=== PATIENT | male | born 1945 | race Hispanic/Latino ===

== ENCOUNTER → 2020-01-07 | Outpatient (CLI) | payer OTHER | END | disposition home or self-care (01) | LOC: RAH 08:33 | PROVIDERS: ATTEND Family Medicine | DX: I70.0 Atherosclerosis of aorta (principal); K57.90 Diverticulosis of intestine, part unspecified, without perforation or abscess without bleeding; R63.4 Abnormal weight loss | CPT/HCPCS: 74176 ==

== ENCOUNTER 2020-11-20 09:43 | Inpatient (IN) | payer OTHER ==
[~2020-11-20] VITALS: Ht 167.6 cm; Wt 65.5 kg
[2020-11-20] MEDS ORDERED: ALBUTEROL INHALER 90MCG/INH IH ONE (10:16)
[2020-11-20 10:25] LABS: BASOPHILS % (AUTO) 0.2 % (0.0-5.0); EOSINOPHILS % (AUTO) 0.6 % (0.0-8.0); HEMATOCRIT 41.5 % (42-54); LYMPHOCYTES % (AUTO) 9.5 % (21.0-51.0); MEAN CORPUSCULAR HEMOGLOBIN 30.2 pg (27.0-33.0); MEAN CORPUSCULAR VOLUME 91.6 fL (79-99); MONOCYTES % (AUTO) 4.6 % (3.0-13.0); NEUTROPHILS % (AUTO) 83.6 % (40.0-77.0); PLATELET COUNT (AUTO) 398 K/uL (130-400); RED BLOOD CELL COUNT(AUTO) 4.53 MIL/uL (4.50-6.20); RED CELL DISTRIBUTION WIDTH 13.3 % (11.0-15.5); WHITE BLOOD COUNT (AUTO) 12.2 K/uL (4.8-10.8)
[2020-11-20 10:33] LABS: INR 1.3 (0.85-1.15); PROTHROMBIN TIME 13.8 SEC (9.6-11.6)
[2020-11-20 10:35] LABS: PARTIAL THROMBOPLASTIN TIME 35.2 SEC (26.3-35.5)
[2020-11-20 10:42] LABS: ALANINE AMINOTRANSFERASE 56 U/L (12-78); ALBUMIN 2.1 g/dL (3.5-5.0); ASPARTATE AMINOTRANSFERASE 32 U/L (10-37); BILIRUBIN,TOTAL 1.6 mg/dL (0.2-1.0); CARBON DIOXIDE 28 mmol/L (21-32); CHLORIDE 100 mmol/L (101-111); CREATINE KINASE, TOTAL 22 U/L (21-232); GLOMERULAR FILTR. RATE CALC 77 mL/min (>60); GLUCOSE,RANDOM 103 mg/dL (70-105); LACTATE DEHYDROGENASE 302 U/L (81-234); MYOGLOBIN 36 ng/mL (10-92); POTASSIUM 4.1 mmol/L (3.5-5.1); SODIUM SERUM 135 mmol/L (136-145); TOTAL PROTEIN, SERUM 6.7 g/dL (6.0-8.3); TROPONIN I < 0.04 ng/mL (0.00-0.06); UREA NITROGEN, BLOOD 13 mg/dL (7-18)
[2020-11-20] MEDS ORDERED: CEFTRIAXONE 1G VIAL ONE (11:11)
[2020-11-20] MEDS ORDERED: AZITHROMYCIN 250 MG TABLET PO ONE (11:12)
[2020-11-20 11:27] LABS: ERYTHROCYTE SEDIMENTATION RATE 105 MM/HR (0-20)
[2020-11-20] MEDS: CEFEPIME HCL 1 GM VIAL IVP SCH ×2 (11:30→18:08)
[2020-11-20] MEDS ORDERED: ALBUTEROL INHALER 90MCG/INH IH PRN (11:30)
[2020-11-20] MEDS ORDERED: LABETALOL 20MG SYG IV PRN (11:30)
[2020-11-20] MEDS ORDERED: LACTULOSE 20 GM/30 ML UDCUP PO PRN (11:30)
[2020-11-20] MEDS ORDERED: SOLU-MEDROL 125MG VIAL IVP ONE (11:30)
[2020-11-20] MEDS ORDERED: ONDANSETRON 4MG INJ IVP PRN (11:30)
[2020-11-20] MEDS ORDERED: ACETAMINOPHEN 650 MG SUPPOSITORY RC PRN (11:30)
[2020-11-20] MEDS ORDERED: ACETAMINOPHEN 325 MG TAB PO PRN (11:30)
[2020-11-20] MEDS ORDERED: CLONIDINE HCL 0.1 MG TABLET PO PRN (11:30)
[2020-11-20] MEDS: INSULIN HUMULIN R 100 UNIT/ML 3ML SQ SCH ×3 (11:30→21:00)
[2020-11-20 12:16] LABS: ABG BASE EXCESS 1.6 mmol/L (-2.0-3.0); ABG HCO3 25.2 mmol/L (21.0-28.0); ABG PCO2 37 mmHg (35-48)
[2020-11-20] MEDS ORDERED: CEFEPIME HCL 2 GM VIAL ONE (12:36)
[2020-11-20] MEDS ORDERED: SOLU-MEDROL 125MG VIAL ONE (12:36)
[2020-11-20] MEDS ORDERED: LACTATED RINGERS 1000ML 1,000 ML IV ONE (12:36)
[2020-11-20] MEDS ORDERED: 0.9%NACL 100ML 100 ML IV ONE (12:37)
[2020-11-20] MEDS: METRONIDAZOLE 500MG/100ML BAG 100 ML IVPB SCH ×2 (14:57→21:51)
[2020-11-20] MEDS ORDERED: PHARMACY COMMUNICATION MISC SCH (15:00)
[2020-11-20 16:17] VITALS: BP 141/82
[2020-11-20] MEDS ORDERED: ALBU6.7H9 IH (16:37)
[2020-11-20] MEDS ORDERED: AMLO-257 PO (16:37)
[2020-11-20] MEDS ORDERED: OXYB10TA4 PO (16:37)
[2020-11-20] MEDS ORDERED: LISI20TA24 PO (16:37)
[2020-11-20] MEDS ORDERED: ATOR40TA69 PO (16:37)
[2020-11-20] MEDS: LACTATED RINGERS 1000ML 1,000 ML IV SCH (18:00)
[2020-11-20] MEDS: PANTOPRAZOLE 40 MG TAB DR PO SCH (18:08)
[2020-11-20 19:05] LABS: CREATINE KINASE, TOTAL 21 U/L (21-232); MYOGLOBIN 35 ng/mL (10-92); TROPONIN I < 0.04 ng/mL (0.00-0.06)
[2020-11-20] MEDS ORDERED: REMDESIVIR (EUA) 520 200 MG in 0.9% NACL 250ML 250 ML IV ONE (20:00)
[2020-11-20] MEDS ORDERED: COMPOUND IV REFRIGERATED 1 EACH IVSOLN MISC PRN (20:00)
[2020-11-20 20:17] VITALS: BP 136/72
[2020-11-20] MEDS: SOLU-MEDROL 125MG VIAL IVP SCH (21:50)
[2020-11-20] MEDS: ATORVASTATIN 40 MG TABLET PO SCH (21:51)
[2020-11-20 22:08] VITALS: BP 124/72
[2020-11-21] VITALS (9 sets, daily range): BP systolic 102–140; BP diastolic 36–74
[2020-11-21] MEDS ORDERED: 0.9% NACL 500ML IV.SOLN 500 ML IV ONE (00:11)
[2020-11-21 00:55] LABS: CREATINE KINASE, TOTAL 25 U/L (21-232); MYOGLOBIN 32 ng/mL (10-92); TROPONIN I < 0.04 ng/mL (0.00-0.06)
[2020-11-21] MEDS: LACTATED RINGERS 1000ML 1,000 ML IV SCH ×2 (01:16→10:54)
[2020-11-21] MEDS: CEFEPIME HCL 1 GM VIAL IVP SCH ×3 (04:17→19:55)
[2020-11-21] MEDS: SOLU-MEDROL 125MG VIAL IVP SCH ×3 (04:18→19:55)
[2020-11-21 04:34] LABS: BASOPHILS % (AUTO) 0.1 % (0.0-5.0); HEMATOCRIT 36.9 % (42-54); LYMPHOCYTES % (AUTO) 11.1 % (21.0-51.0); MEAN CORPUSCULAR HEMOGLOBIN 30.6 pg (27.0-33.0); MEAN CORPUSCULAR HGB CONC 33.9 g/dL (32.0-36.0); MEAN CORPUSCULAR VOLUME 90.2 fL (79-99); NEUTROPHILS % (AUTO) 85.9 % (40.0-77.0); PLATELET COUNT (AUTO) 376 K/uL (130-400); RED BLOOD CELL COUNT(AUTO) 4.09 MIL/uL (4.50-6.20); RED CELL DISTRIBUTION WIDTH 13.2 % (11.0-15.5); WHITE BLOOD COUNT (AUTO) 9.6 K/uL (4.8-10.8)
[2020-11-21 04:44] LABS: CREATININE 0.8 mg/dL (0.5-1.5); PHOSPHORUS 4.2 mg/dL (2.5-4.9); POTASSIUM 3.9 mmol/L (3.5-5.1)
[2020-11-21 04:48] LABS: % IRON SATURATION 22.6 % (30-44)
[2020-11-21] MEDS ORDERED: REMDESIVIR LABS MISC SCH (06:00)
[2020-11-21] MEDS: METRONIDAZOLE 500MG/100ML BAG 100 ML IVPB SCH ×3 (06:48→22:37)
[2020-11-21] MEDS: INSULIN HUMULIN R 100 UNIT/ML 3ML SQ SCH ×4 (07:30→21:41)
[2020-11-21] MEDS: POLYETHYLENE GLYCOL 3350 17 GM POWD.PACK PO SCH (08:14)
[2020-11-21] MEDS: OXYBUTYNIN CHLORIDE 5 MG TABLET PO SCH (08:15)
[2020-11-21] MEDS: ENOXAPARIN SODIUM 40 MG/0.4 ML SYRINGE SQ SCH (08:15)
[2020-11-21] MEDS: AMLODIPINE 5 MG TAB PO SCH (08:15)
[2020-11-21] MEDS: PANTOPRAZOLE 40 MG TAB DR PO SCH (16:28)
[2020-11-21 16:55] LABS: CREATININE 1.2 mg/dL (0.5-1.5); POTASSIUM 3.7 mmol/L (3.5-5.1)
[2020-11-21 17:00] LABS: ALBUMIN 1.8 g/dL (3.5-5.0); BILIRUBIN,TOTAL 0.5 mg/dL (0.2-1.0); TOTAL PROTEIN, SERUM 6.9 g/dL (6.0-8.3)
[2020-11-21] MEDS: REMDESIVIR (EUA) 520 100 MG in 0.9% NACL 250ML 250 ML IV SCH (19:55)
[2020-11-21] MEDS: ATORVASTATIN 40 MG TABLET PO SCH (19:56)
[2020-11-22 03:00] VITALS: BP 110/66
[2020-11-22 04:21] LABS: HEMATOCRIT 36.8 % (42-54); MEAN CORPUSCULAR HEMOGLOBIN 29.3 pg (27.0-33.0); MEAN CORPUSCULAR HGB CONC 31.8 g/dL (32.0-36.0); RED CELL DISTRIBUTION WIDTH 13.4 % (11.0-15.5); WHITE BLOOD COUNT (AUTO) 19.3 K/uL (4.8-10.8)
[2020-11-22] MEDS: SOLU-MEDROL 125MG VIAL IVP SCH ×3 (04:25→20:14)
[2020-11-22] MEDS: CEFEPIME HCL 1 GM VIAL IVP SCH ×3 (04:25→20:14)
[2020-11-22] MEDS: LACTATED RINGERS 1000ML 1,000 ML IV SCH ×2 (04:25→18:02)
[2020-11-22 04:29] LABS: CREATININE 0.9 mg/dL (0.5-1.5); POTASSIUM 4.6 mmol/L (3.5-5.1)
[2020-11-22] MEDS: INSULIN HUMULIN R 100 UNIT/ML 3ML SQ SCH ×4 (06:16→21:00)
[2020-11-22] MEDS: METRONIDAZOLE 500MG/100ML BAG 100 ML IVPB SCH ×3 (06:19→22:27)
[2020-11-22 06:42] LABS: ALBUMIN 1.6 g/dL (3.5-5.0); BILIRUBIN,DIRECT 0.1 mg/dL (0.0-0.3); BILIRUBIN,TOTAL 0.3 mg/dL (0.2-1.0); CREATININE 0.9 mg/dL (0.5-1.5); TOTAL PROTEIN, SERUM 5.9 g/dL (6.0-8.3)
[2020-11-22 07:28] VITALS: BP 122/70
[2020-11-22] MEDS: OXYBUTYNIN CHLORIDE 5 MG TABLET PO SCH (08:51)
[2020-11-22] MEDS: AMLODIPINE 5 MG TAB PO SCH (08:52)
[2020-11-22] MEDS: ENOXAPARIN SODIUM 40 MG/0.4 ML SYRINGE SQ SCH (08:53)
[2020-11-22] MEDS: POLYETHYLENE GLYCOL 3350 17 GM POWD.PACK PO SCH (08:53)
[2020-11-22 13:14] VITALS: BP 126/67
[2020-11-22 16:46] VITALS: BP 136/78
[2020-11-22] MEDS: DRONABINOL 2.5 MG CAP PO SCH (17:03)
[2020-11-22] MEDS: PANTOPRAZOLE 40 MG TAB DR PO SCH (17:03)
[2020-11-22 18:51] LABS: BILIRUBIN,URINE Negative (NEGATIVE); COLOR,URINE Yellow (YELLOW); GLUCOSE, URINE (UA) 500 mg/dL (NEGATIVE); KETONES,URINE Negative (NEGATIVE); LEUKOCYTE ESTERASE ,URINE Negative (NEGATIVE); NITRATE,URINE Negative (NEGATIVE); OCCULT BLOOD,URINE Negative (NEGATIVE); PROTEIN,URINE Negative (NEGATIVE)
[2020-11-22 18:57] LABS: APPEARANCE,URINE CLOUDY (CLEAR)
[2020-11-22 19:00] VITALS: BP 137/72
[2020-11-22 19:32] LABS: BACTERIA,URINE Rare /HPF (None Seen); RBC,URINE 0-1 /HPF (0-1); SQUAMOUS EPITHELIAL CELL,UR Rare /HPF (0-2); URIC ACID CRYSTALS,URINE Moderate /LPF (None Seen); WBC,URINE 0-1 /HPF (0-1)
[2020-11-22 19:33] LABS: HYALINE CASTS, URINE 0-1 /LPF (0-1 /LPF)
[2020-11-22] MEDS: ATORVASTATIN 40 MG TABLET PO SCH (20:15)
[2020-11-22] MEDS: REMDESIVIR (EUA) 520 100 MG in 0.9% NACL 250ML 250 ML IV SCH (20:17)
[2020-11-23] VITALS: BP 141/80
[2020-11-23] MEDS: SOLU-MEDROL 125MG VIAL IVP SCH ×3 (03:22→20:02)
[2020-11-23] MEDS: CEFEPIME HCL 1 GM VIAL IVP SCH ×3 (03:22→20:02)
[2020-11-23 03:31] LABS: HEMATOCRIT 36.6 % (42-54); MEAN CORPUSCULAR HEMOGLOBIN 30.4 pg (27.0-33.0); MEAN CORPUSCULAR HGB CONC 33.3 g/dL (32.0-36.0); MEAN CORPUSCULAR VOLUME 91.3 fL (79-99); RED BLOOD CELL COUNT(AUTO) 4.01 MIL/uL (4.50-6.20); RED CELL DISTRIBUTION WIDTH 13.4 % (11.0-15.5); WHITE BLOOD COUNT (AUTO) 18.9 K/uL (4.8-10.8)
[2020-11-23 03:46] LABS: CREATININE 0.9 mg/dL (0.5-1.5); POTASSIUM 4.1 mmol/L (3.5-5.1)
[2020-11-23 04:00] VITALS: BP 136/60
[2020-11-23] MEDS: METRONIDAZOLE 500MG/100ML BAG 100 ML IVPB SCH ×3 (06:15→22:27)
[2020-11-23] MEDS: LACTATED RINGERS 1000ML 1,000 ML IV SCH ×2 (06:15→19:30)
[2020-11-23] MEDS: INSULIN HUMULIN R 100 UNIT/ML 3ML SQ SCH ×4 (06:18→20:01)
[2020-11-23 06:59] LABS: ALBUMIN 1.7 g/dL (3.5-5.0); BILIRUBIN,DIRECT 0.1 mg/dL (0.0-0.3); BILIRUBIN,TOTAL 0.4 mg/dL (0.2-1.0)
[2020-11-23 07:24] LABS: ABG BASE EXCESS 1.8 mmol/L (-2.0-3.0); ABG HCO3 25.6 mmol/L (21.0-28.0); ABG OXYGEN SATURATION 87.6 % (95.0-99.0); ABG PCO2 37 mmHg (35-48)
[2020-11-23 08:00] VITALS: BP 135/66
[2020-11-23] MEDS: AMLODIPINE 5 MG TAB PO SCH (08:34)
[2020-11-23] MEDS: OXYBUTYNIN CHLORIDE 5 MG TABLET PO SCH (08:34)
[2020-11-23] MEDS: DRONABINOL 2.5 MG CAP PO SCH ×2 (08:34→16:53)
[2020-11-23] MEDS: POLYETHYLENE GLYCOL 3350 17 GM POWD.PACK PO SCH (08:34)
[2020-11-23] MEDS: ENOXAPARIN SODIUM 40 MG/0.4 ML SYRINGE SQ SCH (08:35)
[2020-11-23] MEDS ORDERED: 0.9%NACL 50ML 50 ML IV ONE (11:07)
[2020-11-23 12:27] VITALS: BP 131/59
[2020-11-23 16:00] VITALS: BP 150/80
[2020-11-23] MEDS: PANTOPRAZOLE 40 MG TAB DR PO SCH (16:53)
[2020-11-23 19:55] VITALS: BP 147/85
[2020-11-23] MEDS: ATORVASTATIN 40 MG TABLET PO SCH (20:02)
[2020-11-23] MEDS: REMDESIVIR (EUA) 520 100 MG in 0.9% NACL 250ML 250 ML IV SCH (20:06)
[2020-11-24] VITALS (7 sets, daily range): BP systolic 126–154; BP diastolic 52–97
[2020-11-24 03:59] LABS: HEMATOCRIT 38.8 % (42-54); MEAN CORPUSCULAR HEMOGLOBIN 29.5 pg (27.0-33.0); MEAN CORPUSCULAR HGB CONC 32.7 g/dL (32.0-36.0); RED BLOOD CELL COUNT(AUTO) 4.31 MIL/uL (4.50-6.20); RED CELL DISTRIBUTION WIDTH 13.3 % (11.0-15.5)
[2020-11-24 04:07] LABS: CREATININE 0.7 mg/dL (0.5-1.5); POTASSIUM 3.7 mmol/L (3.5-5.1)
[2020-11-24] MEDS: CEFEPIME HCL 1 GM VIAL IVP SCH ×3 (04:21→20:38)
[2020-11-24] MEDS: SOLU-MEDROL 125MG VIAL IVP SCH ×3 (04:21→20:38)
[2020-11-24] MEDS: METRONIDAZOLE 500MG/100ML BAG 100 ML IVPB SCH ×3 (05:43→22:06)
[2020-11-24] MEDS: INSULIN HUMULIN R 100 UNIT/ML 3ML SQ SCH ×4 (05:43→20:58)
[2020-11-24 06:07] LABS: ALBUMIN 1.8 g/dL (3.5-5.0); BILIRUBIN,DIRECT 0.1 mg/dL (0.0-0.3); BILIRUBIN,TOTAL 0.4 mg/dL (0.2-1.0); CREATININE 0.7 mg/dL (0.5-1.5); TOTAL PROTEIN, SERUM 5.5 g/dL (6.0-8.3)
[2020-11-24 06:57] LABS: ABG BASE EXCESS 2.6 mmol/L (-2.0-3.0); ABG HCO3 26.4 mmol/L (21.0-28.0); ABG OXYGEN SATURATION 96.1 % (95.0-99.0); ABG PCO2 38 mmHg (35-48)
[2020-11-24] MEDS: DRONABINOL 2.5 MG CAP PO SCH ×2 (08:07→17:00)
[2020-11-24] MEDS: POLYETHYLENE GLYCOL 3350 17 GM POWD.PACK PO SCH (08:07)
[2020-11-24] MEDS: ENOXAPARIN SODIUM 40 MG/0.4 ML SYRINGE SQ SCH (08:07)
[2020-11-24] MEDS: OXYBUTYNIN CHLORIDE 5 MG TABLET PO SCH (08:07)
[2020-11-24] MEDS: AMLODIPINE 5 MG TAB PO SCH (08:07)
[2020-11-24] MEDS ORDERED: 0.9%NACL 50ML 50 ML IV ONE (11:56)
[2020-11-24] MEDS: PANTOPRAZOLE 40 MG TAB DR PO SCH (17:00)
[2020-11-24 18:21] LABS: ALBUMIN 2.1 g/dL (3.5-5.0); BILIRUBIN,TOTAL 0.5 mg/dL (0.2-1.0); CREATININE 0.9 mg/dL (0.5-1.5); POTASSIUM 3.9 mmol/L (3.5-5.1); TOTAL PROTEIN, SERUM 6.9 g/dL (6.0-8.3)
[2020-11-24] MEDS: ATORVASTATIN 40 MG TABLET PO SCH (20:38)
[2020-11-24] MEDS: REMDESIVIR (EUA) 520 100 MG in 0.9% NACL 250ML 250 ML IV SCH (20:40)
[2020-11-25] MEDS: SOLU-MEDROL 125MG VIAL IVP SCH ×3 (02:37→20:00)
[2020-11-25] MEDS: CEFEPIME HCL 1 GM VIAL IVP SCH ×3 (02:37→20:00)
[2020-11-25 03:03] VITALS: BP 127/53
[2020-11-25 04:15] LABS: HEMATOCRIT 37.7 % (42-54); MEAN CORPUSCULAR HEMOGLOBIN 30.6 pg (27.0-33.0); MEAN CORPUSCULAR HGB CONC 34.2 g/dL (32.0-36.0); MEAN CORPUSCULAR VOLUME 89.5 fL (79-99); RED BLOOD CELL COUNT(AUTO) 4.21 MIL/uL (4.50-6.20); RED CELL DISTRIBUTION WIDTH 13.2 % (11.0-15.5); WHITE BLOOD COUNT (AUTO) 17.2 K/uL (4.8-10.8)
[2020-11-25 04:30] LABS: CREATININE 0.7 mg/dL (0.5-1.5); CRP QUANTITATIVE 51.9 mg/L (0.00-9.0); POTASSIUM 4.1 mmol/L (3.5-5.1)
[2020-11-25] MEDS: METRONIDAZOLE 500MG/100ML BAG 100 ML IVPB SCH ×3 (05:49→21:51)
[2020-11-25] MEDS: INSULIN HUMULIN R 100 UNIT/ML 3ML SQ SCH ×4 (05:50→16:16)
[2020-11-25 08:00] VITALS: BP 121/68
[2020-11-25] MEDS: DRONABINOL 2.5 MG CAP PO SCH ×2 (08:15→15:54)
[2020-11-25] MEDS: AMLODIPINE 5 MG TAB PO SCH (08:15)
[2020-11-25] MEDS: OXYBUTYNIN CHLORIDE 5 MG TABLET PO SCH (08:15)
[2020-11-25] MEDS: ENOXAPARIN SODIUM 40 MG/0.4 ML SYRINGE SQ SCH (08:16)
[2020-11-25] MEDS: POLYETHYLENE GLYCOL 3350 17 GM POWD.PACK PO SCH (08:16)
[2020-11-25] MEDS ORDERED: 0.9%NACL 50ML 50 ML IV ONE (11:55)
[2020-11-25 12:00] VITALS: BP 144/97
[2020-11-25] MEDS: PANTOPRAZOLE 40 MG TAB DR PO SCH (15:51)
[2020-11-25 16:00] VITALS: BP 140/79
[2020-11-25 20:00] VITALS: BP 154/82
[2020-11-25] MEDS: ATORVASTATIN 40 MG TABLET PO SCH (20:00)
[2020-11-25] MEDS ORDERED: INSULIN HUMULIN R 100 UNIT/ML 3ML SQ SCH (22:50)
[2020-11-26 04:00] VITALS: BP 160/81
[2020-11-26 04:17] LABS: ABG BASE EXCESS 3.8 mmol/L (-2.0-3.0); ABG OXYGEN SATURATION 92.4 % (95.0-99.0); ABG PCO2 36 mmHg (35-48)
[2020-11-26] MEDS: CEFEPIME HCL 1 GM VIAL IVP SCH ×2 (04:19→11:22)
[2020-11-26] MEDS: SOLU-MEDROL 125MG VIAL IVP SCH ×3 (04:19→20:00)
[2020-11-26 05:16] LABS: HEMATOCRIT 44.6 % (42-54); MEAN CORPUSCULAR HEMOGLOBIN 29.6 pg (27.0-33.0); MEAN CORPUSCULAR HGB CONC 32.7 g/dL (32.0-36.0); MEAN CORPUSCULAR VOLUME 90.5 fL (79-99); RED BLOOD CELL COUNT(AUTO) 4.93 MIL/uL (4.50-6.20); RED CELL DISTRIBUTION WIDTH 13.7 % (11.0-15.5)
[2020-11-26 05:29] LABS: CREATININE 0.7 mg/dL (0.5-1.5); MAGNESIUM 2.2 mg/dL (1.80-2.40); POTASSIUM 3.8 mmol/L (3.5-5.1)
[2020-11-26] MEDS: METRONIDAZOLE 500MG/100ML BAG 100 ML IVPB SCH ×2 (05:55→14:00)
[2020-11-26] MEDS: INSULIN HUMULIN R 100 UNIT/ML 3ML SQ SCH ×4 (06:02→20:03)
[2020-11-26 07:40] VITALS: BP 149/91
[2020-11-26] MEDS: OXYBUTYNIN CHLORIDE 5 MG TABLET PO SCH (08:37)
[2020-11-26] MEDS: DRONABINOL 2.5 MG CAP PO SCH ×2 (08:37→16:58)
[2020-11-26] MEDS: AMLODIPINE 5 MG TAB PO SCH (08:37)
[2020-11-26] MEDS: ENOXAPARIN SODIUM 40 MG/0.4 ML SYRINGE SQ SCH (08:38)
[2020-11-26] MEDS: POLYETHYLENE GLYCOL 3350 17 GM POWD.PACK PO SCH (08:38)
[2020-11-26] MEDS ORDERED: 0.9%NACL 50ML 50 ML IV ONE (11:09)
[2020-11-26 11:30] VITALS: BP 122/70
[2020-11-26 16:17] VITALS: BP 148/80
[2020-11-26] MEDS: PANTOPRAZOLE 40 MG TAB DR PO SCH (16:58)
[2020-11-26 19:53] VITALS: BP 145/81
[2020-11-26] MEDS: ATORVASTATIN 40 MG TABLET PO SCH (20:00)
[2020-11-26 23:04] VITALS: BP 135/78
[2020-11-27 03:33] VITALS: BP 147/73
[2020-11-27] MEDS: SOLU-MEDROL 125MG VIAL IVP SCH ×3 (04:01→18:43)
[2020-11-27] MEDS: INSULIN HUMULIN R 100 UNIT/ML 3ML SQ SCH ×4 (06:24→20:44)
[2020-11-27 08:00] VITALS: BP 147/77
[2020-11-27] MEDS: OXYBUTYNIN CHLORIDE 5 MG TABLET PO SCH (09:28)
[2020-11-27] MEDS: DRONABINOL 2.5 MG CAP PO SCH ×2 (09:28→17:18)
[2020-11-27] MEDS: AMLODIPINE 5 MG TAB PO SCH (09:28)
[2020-11-27] MEDS: POLYETHYLENE GLYCOL 3350 17 GM POWD.PACK PO SCH (09:31)
[2020-11-27] MEDS: ENOXAPARIN SODIUM 40 MG/0.4 ML SYRINGE SQ SCH (09:31)
[2020-11-27 10:22] LABS: APPEARANCE,URINE Cloudy (CLEAR); BILIRUBIN,URINE Negative (NEGATIVE); COLOR,URINE Yellow (YELLOW); GLUCOSE, URINE (UA) Negative (NEGATIVE); KETONES,URINE Negative (NEGATIVE); LEUKOCYTE ESTERASE ,URINE Trace (NEGATIVE); NITRATE,URINE Negative (NEGATIVE); OCCULT BLOOD,URINE Negative (NEGATIVE); PROTEIN,URINE Negative (NEGATIVE)
[2020-11-27 10:33] LABS: RBC,URINE 0-1 /HPF (0-1)
[2020-11-27 10:34] LABS: BACTERIA,URINE Few /HPF (None Seen); SQUAMOUS EPITHELIAL CELL,UR Few /HPF (0-2)
[2020-11-27 12:00] VITALS: BP 117/72
[2020-11-27 16:00] VITALS: BP 128/75
[2020-11-27] MEDS: PANTOPRAZOLE 40 MG TAB DR PO SCH (17:18)
[2020-11-27 20:00] VITALS: BP 144/74
[2020-11-27] MEDS: ATORVASTATIN 40 MG TABLET PO SCH (20:07)
[2020-11-28] VITALS: BP 126/75
[2020-11-28] MEDS: SOLU-MEDROL 125MG VIAL IVP SCH ×3 (02:47→21:41)
[2020-11-28 04:00] VITALS: BP 135/74
[2020-11-28 04:00] LABS: HEMATOCRIT 43.6 % (42-54); MEAN CORPUSCULAR HEMOGLOBIN 29.4 pg (27.0-33.0); MEAN CORPUSCULAR HGB CONC 31.9 g/dL (32.0-36.0); MEAN CORPUSCULAR VOLUME 92.4 fL (79-99); RED BLOOD CELL COUNT(AUTO) 4.72 MIL/uL (4.50-6.20); RED CELL DISTRIBUTION WIDTH 13.6 % (11.0-15.5); WHITE BLOOD COUNT (AUTO) 15.2 K/uL (4.8-10.8)
[2020-11-28 04:10] LABS: CREATININE 0.8 mg/dL (0.5-1.5); MAGNESIUM 2.1 mg/dL (1.80-2.40); PHOSPHORUS 3.6 mg/dL (2.5-4.9); POTASSIUM 4.1 mmol/L (3.5-5.1)
[2020-11-28 05:19] LABS: ABG BASE EXCESS 5.7 mmol/L (-2.0-3.0); ABG HCO3 29.9 mmol/L (21.0-28.0); ABG OXYGEN SATURATION 88.9 % (95.0-99.0); ABG PCO2 42 mmHg (35-48)
[2020-11-28] MEDS: INSULIN HUMULIN R 100 UNIT/ML 3ML SQ SCH ×4 (07:23→21:42)
[2020-11-28] MEDS: AMLODIPINE 5 MG TAB PO SCH (07:55)
[2020-11-28] MEDS: POLYETHYLENE GLYCOL 3350 17 GM POWD.PACK PO SCH (07:55)
[2020-11-28] MEDS: ENOXAPARIN SODIUM 40 MG/0.4 ML SYRINGE SQ SCH (07:55)
[2020-11-28] MEDS: OXYBUTYNIN CHLORIDE 5 MG TABLET PO SCH (07:55)
[2020-11-28] MEDS: DRONABINOL 2.5 MG CAP PO SCH ×2 (07:55→17:26)
[2020-11-28 07:56] VITALS: BP 158/78
[2020-11-28 11:55] VITALS: BP 147/81
[2020-11-28 15:00] VITALS: BP 141/69
[2020-11-28] MEDS: PANTOPRAZOLE 40 MG TAB DR PO SCH (17:26)
[2020-11-28 20:00] VITALS: BP 125/71
[2020-11-28] MEDS: ATORVASTATIN 40 MG TABLET PO SCH (21:41)
[2020-11-29] VITALS (7 sets, daily range): BP systolic 96–144; BP diastolic 55–86
[2020-11-29 03:48] LABS: HEMATOCRIT 40.1 % (42-54); MEAN CORPUSCULAR HEMOGLOBIN 29.4 pg (27.0-33.0); MEAN CORPUSCULAR HGB CONC 31.9 g/dL (32.0-36.0); MEAN CORPUSCULAR VOLUME 92.2 fL (79-99); RED BLOOD CELL COUNT(AUTO) 4.35 MIL/uL (4.50-6.20); RED CELL DISTRIBUTION WIDTH 13.6 % (11.0-15.5); WHITE BLOOD COUNT (AUTO) 17.1 K/uL (4.8-10.8)
[2020-11-29] MEDS: SOLU-MEDROL 125MG VIAL IVP SCH ×3 (03:53→20:51)
[2020-11-29 04:05] LABS: CREATININE 0.7 mg/dL (0.5-1.5); MAGNESIUM 2.1 mg/dL (1.80-2.40); POTASSIUM 4.3 mmol/L (3.5-5.1)
[2020-11-29 04:07] LABS: ABG HCO3 34.8 mmol/L (21.0-28.0); ABG OXYGEN SATURATION 96.6 % (95.0-99.0); ABG PCO2 51 mmHg (35-48)
[2020-11-29] MEDS: INSULIN HUMULIN R 100 UNIT/ML 3ML SQ SCH ×4 (05:30→20:53)
[2020-11-29] MEDS: AMLODIPINE 5 MG TAB PO SCH (09:00)
[2020-11-29] MEDS: ENOXAPARIN SODIUM 40 MG/0.4 ML SYRINGE SQ SCH (09:07)
[2020-11-29] MEDS: OXYBUTYNIN CHLORIDE 5 MG TABLET PO SCH (09:07)
[2020-11-29] MEDS: POLYETHYLENE GLYCOL 3350 17 GM POWD.PACK PO SCH (09:07)
[2020-11-29] MEDS: DRONABINOL 2.5 MG CAP PO SCH (09:09)
[2020-11-29] MEDS: PANTOPRAZOLE 40 MG TAB DR PO SCH (17:31)
[2020-11-29] MEDS: ATORVASTATIN 40 MG TABLET PO SCH (20:51)
[2020-11-30 03:25] VITALS: BP 112/80
[2020-11-30] MEDS: SOLU-MEDROL 125MG VIAL IVP SCH ×3 (03:30→21:33)
[2020-11-30 03:44] LABS: HEMATOCRIT 39.2 % (42-54); MEAN CORPUSCULAR HEMOGLOBIN 29.8 pg (27.0-33.0); MEAN CORPUSCULAR HGB CONC 32.4 g/dL (32.0-36.0); RED BLOOD CELL COUNT(AUTO) 4.26 MIL/uL (4.50-6.20); RED CELL DISTRIBUTION WIDTH 13.7 % (11.0-15.5); WHITE BLOOD COUNT (AUTO) 14.4 K/uL (4.8-10.8)
[2020-11-30 03:58] LABS: CREATININE 0.7 mg/dL (0.5-1.5); MAGNESIUM 2.1 mg/dL (1.80-2.40)
[2020-11-30] MEDS: INSULIN HUMULIN R 100 UNIT/ML 3ML SQ SCH ×4 (06:57→21:35)
[2020-11-30 07:00] VITALS: BP 128/65
[2020-11-30] MEDS: OXYBUTYNIN CHLORIDE 5 MG TABLET PO SCH (08:24)
[2020-11-30] MEDS: ENOXAPARIN SODIUM 40 MG/0.4 ML SYRINGE SQ SCH (08:25)
[2020-11-30] MEDS: POLYETHYLENE GLYCOL 3350 17 GM POWD.PACK PO SCH (08:25)
[2020-11-30] MEDS: AMLODIPINE 5 MG TAB PO SCH (08:25)
[2020-11-30 11:00] VITALS: BP 125/69
[2020-11-30 16:00] VITALS: BP 118/64
[2020-11-30] MEDS: PANTOPRAZOLE 40 MG TAB DR PO SCH (17:25)
[2020-11-30 19:20] VITALS: BP 146/74
[2020-11-30] MEDS: ATORVASTATIN 40 MG TABLET PO SCH (21:33)
[2020-11-30 23:24] VITALS: BP 135/72
[2020-12-01 04:19] VITALS: BP 121/60
[2020-12-01 05:18] LABS: HEMATOCRIT 40.2 % (42-54); MEAN CORPUSCULAR HEMOGLOBIN 29.9 pg (27.0-33.0); MEAN CORPUSCULAR HGB CONC 33.3 g/dL (32.0-36.0); MEAN CORPUSCULAR VOLUME 89.7 fL (79-99); NUCLEATED RED BLOOD CELLS 0.1 % (0.0-0.19); RED BLOOD CELL COUNT(AUTO) 4.48 MIL/uL (4.50-6.20); RED CELL DISTRIBUTION WIDTH 13.5 % (11.0-15.5); WHITE BLOOD COUNT (AUTO) 15.5 K/uL (4.8-10.8)
[2020-12-01 05:46] LABS: CREATININE 0.7 mg/dL (0.5-1.5); POTASSIUM 3.9 mmol/L (3.5-5.1)
[2020-12-01 06:42] VITALS: BP 151/83
[2020-12-01] MEDS: INSULIN HUMULIN R 100 UNIT/ML 3ML SQ SCH ×4 (07:30→21:14)
[2020-12-01] MEDS: POLYETHYLENE GLYCOL 3350 17 GM POWD.PACK PO SCH (08:54)
[2020-12-01] MEDS: AMLODIPINE 5 MG TAB PO SCH (08:54)
[2020-12-01] MEDS: ENOXAPARIN SODIUM 40 MG/0.4 ML SYRINGE SQ SCH (08:55)
[2020-12-01] MEDS: OXYBUTYNIN CHLORIDE 5 MG TABLET PO SCH (08:56)
[2020-12-01 11:56] VITALS: BP 146/76
[2020-12-01 16:00] VITALS: BP 144/78
[2020-12-01] MEDS: PANTOPRAZOLE 40 MG TAB DR PO SCH (17:41)
[2020-12-01] MEDS: SOLU-MEDROL 125MG VIAL IVP SCH ×3 (17:44→21:17)
[2020-12-01 19:00] VITALS: BP 137/75
[2020-12-01] MEDS: ATORVASTATIN 40 MG TABLET PO SCH (21:15)
[2020-12-02] VITALS: BP 120/67
[2020-12-02 04:00] VITALS: BP 143/73
[2020-12-02] MEDS: SOLU-MEDROL 125MG VIAL IVP SCH ×3 (04:35→22:17)
[2020-12-02 05:36] LABS: HEMATOCRIT 40.1 % (42-54); MEAN CORPUSCULAR HEMOGLOBIN 30.3 pg (27.0-33.0); MEAN CORPUSCULAR HGB CONC 34.2 g/dL (32.0-36.0); MEAN CORPUSCULAR VOLUME 88.7 fL (79-99); RED BLOOD CELL COUNT(AUTO) 4.52 MIL/uL (4.50-6.20); RED CELL DISTRIBUTION WIDTH 13.7 % (11.0-15.5); WHITE BLOOD COUNT (AUTO) 15.6 K/uL (4.8-10.8)
[2020-12-02 05:59] LABS: CREATININE 0.8 mg/dL (0.5-1.5); MAGNESIUM 1.9 mg/dL (1.80-2.40); POTASSIUM 3.9 mmol/L (3.5-5.1)
[2020-12-02] MEDS: INSULIN HUMULIN R 100 UNIT/ML 3ML SQ SCH ×4 (06:07→22:21)
[2020-12-02 08:58] VITALS: BP 131/66
[2020-12-02] MEDS: POLYETHYLENE GLYCOL 3350 17 GM POWD.PACK PO SCH (09:03)
[2020-12-02] MEDS: AMLODIPINE 5 MG TAB PO SCH (09:03)
[2020-12-02] MEDS: OXYBUTYNIN CHLORIDE 5 MG TABLET PO SCH (09:04)
[2020-12-02] MEDS: ENOXAPARIN SODIUM 40 MG/0.4 ML SYRINGE SQ SCH (09:04)
[2020-12-02 12:00] VITALS: BP 124/64
[2020-12-02] MEDS: PANTOPRAZOLE 40 MG TAB DR PO SCH (16:31)
[2020-12-02 16:32] VITALS: BP 127/70
[2020-12-02] MEDS: BENZOCAINE/MENTH/CETYLPYRD CL 1 EACH LOZENGE MM PRN (18:33)
[2020-12-02 19:00] VITALS: BP 138/84
[2020-12-02] MEDS: ATORVASTATIN 40 MG TABLET PO SCH (22:17)
[2020-12-03] VITALS (7 sets, daily range): BP systolic 126–156; BP diastolic 62–84
[2020-12-03 04:25] LABS: HEMATOCRIT 39.2 % (42-54); MEAN CORPUSCULAR HEMOGLOBIN 29.5 pg (27.0-33.0); MEAN CORPUSCULAR HGB CONC 32.7 g/dL (32.0-36.0); MEAN CORPUSCULAR VOLUME 90.3 fL (79-99); NUCLEATED RED BLOOD CELLS 0.1 % (0.0-0.19); RED BLOOD CELL COUNT(AUTO) 4.34 MIL/uL (4.50-6.20); RED CELL DISTRIBUTION WIDTH 13.9 % (11.0-15.5); WHITE BLOOD COUNT (AUTO) 21.7 K/uL (4.8-10.8)
[2020-12-03] MEDS: SOLU-MEDROL 125MG VIAL IVP SCH ×4 (04:26→21:11)
[2020-12-03 04:47] LABS: CREATININE 0.7 mg/dL (0.5-1.5); POTASSIUM 3.6 mmol/L (3.5-5.1)
[2020-12-03] MEDS: BENZOCAINE/MENTH/CETYLPYRD CL 1 EACH LOZENGE MM PRN ×2 (06:20→21:10)
[2020-12-03] MEDS: INSULIN HUMULIN R 100 UNIT/ML 3ML SQ SCH ×4 (06:20→21:01)
[2020-12-03] MEDS: POLYETHYLENE GLYCOL 3350 17 GM POWD.PACK PO SCH (09:55)
[2020-12-03] MEDS: OXYBUTYNIN CHLORIDE 5 MG TABLET PO SCH (09:55)
[2020-12-03] MEDS: ENOXAPARIN SODIUM 40 MG/0.4 ML SYRINGE SQ SCH (09:56)
[2020-12-03] MEDS: AMLODIPINE 5 MG TAB PO SCH (09:59)
[2020-12-03] MEDS ORDERED: IOHEXOL-350 50ML VIAL IV ONE (14:57)
[2020-12-03] MEDS: PANTOPRAZOLE 40 MG TAB DR PO SCH (17:17)
[2020-12-03] MEDS: ATORVASTATIN 40 MG TABLET PO SCH (21:01)
[2020-12-04 04:00] VITALS: BP 153/72
[2020-12-04] MEDS: INSULIN HUMULIN R 100 UNIT/ML 3ML SQ SCH ×4 (06:07→20:44)
[2020-12-04 08:00] VITALS: BP 138/65
[2020-12-04] MEDS: POLYETHYLENE GLYCOL 3350 17 GM POWD.PACK PO SCH (09:12)
[2020-12-04] MEDS: ENOXAPARIN SODIUM 40 MG/0.4 ML SYRINGE SQ SCH (09:13)
[2020-12-04] MEDS: OXYBUTYNIN CHLORIDE 5 MG TABLET PO SCH (09:13)
[2020-12-04] MEDS: AMLODIPINE 5 MG TAB PO SCH (09:13)
[2020-12-04 11:17] LABS: BASOPHILS % (AUTO) 0.3 % (0.0-5.0); EOSINOPHILS % (AUTO) 0.1 % (0.0-8.0); HEMATOCRIT 42.8 % (42-54); LYMPHOCYTES % (AUTO) 5.4 % (21.0-51.0); MEAN CORPUSCULAR HEMOGLOBIN 30.4 pg (27.0-33.0); MEAN CORPUSCULAR HGB CONC 33.6 g/dL (32.0-36.0); MEAN CORPUSCULAR VOLUME 90.3 fL (79-99); MONOCYTES % (AUTO) 4.3 % (3.0-13.0); NEUTROPHILS % (AUTO) 87.3 % (40.0-77.0); PLATELET COUNT (AUTO) 152 K/uL (130-400); RED BLOOD CELL COUNT(AUTO) 4.74 MIL/uL (4.50-6.20); RED CELL DISTRIBUTION WIDTH 14.3 % (11.0-15.5); WHITE BLOOD COUNT (AUTO) 25.2 K/uL (4.8-10.8)
[2020-12-04] MEDS: SOLU-MEDROL 125MG VIAL IVP SCH ×2 (11:36→20:50)
[2020-12-04 11:51] VITALS: BP 122/73
[2020-12-04 16:00] VITALS: BP 126/70
[2020-12-04] MEDS: PANTOPRAZOLE 40 MG TAB DR PO SCH (16:31)
[2020-12-04] MEDS ORDERED: VANCOMYCIN PROTOCOL PER PHARMACY IV SCH (17:45)
[2020-12-04] MEDS ORDERED: BENZOCAINE/MENTH/CETYLPYRD CL 1 EACH LOZENGE MM PRN (17:45)
[2020-12-04] MEDS ORDERED: COMPOUND IV REFRIGERATED 1 EACH IVSOLN MISC PRN (18:15)
[2020-12-04] MEDS ORDERED: VANCOMYCIN 1G 1.25 GM in 0.9% NACL 250ML 250 ML IV ONE (18:30)
[2020-12-04 18:40] LABS: ABG BASE EXCESS 2.6 mmol/L (-2.0-3.0); ABG HCO3 26.4 mmol/L (21.0-28.0); ABG OXYGEN SATURATION 97.6 % (95.0-99.0); ABG PCO2 38 mmHg (35-48)
[2020-12-04 19:43] VITALS: BP 125/73
[2020-12-04] MEDS: ZOSYN 3.375GM+NS 50ML 50 ML IV SCH (20:49)
[2020-12-04] MEDS: ATORVASTATIN 40 MG TABLET PO SCH (20:50)
[2020-12-05 00:08] VITALS: BP 138/62
[2020-12-05] MEDS: SOLU-MEDROL 125MG VIAL IVP SCH ×3 (03:30→20:10)
[2020-12-05 04:28] VITALS: BP 118/82
[2020-12-05 05:04] LABS: HEMATOCRIT 42.6 % (42-54); MEAN CORPUSCULAR HEMOGLOBIN 29.7 pg (27.0-33.0); MEAN CORPUSCULAR HGB CONC 32.4 g/dL (32.0-36.0); MEAN CORPUSCULAR VOLUME 91.6 fL (79-99); RED BLOOD CELL COUNT(AUTO) 4.65 MIL/uL (4.50-6.20); RED CELL DISTRIBUTION WIDTH 14.6 % (11.0-15.5); WHITE BLOOD COUNT (AUTO) 16.9 K/uL (4.8-10.8)
[2020-12-05 05:18] LABS: BILIRUBIN,TOTAL 0.9 mg/dL (0.2-1.0); CREATININE 0.7 mg/dL (0.5-1.5); POTASSIUM 3.8 mmol/L (3.5-5.1); TOTAL PROTEIN, SERUM 5.5 g/dL (6.0-8.3)
[2020-12-05] MEDS: ZOSYN 3.375GM+NS 50ML 50 ML IV SCH ×3 (05:18→20:10)
[2020-12-05 08:00] VITALS: BP 125/63
[2020-12-05] MEDS: VANCOMYCIN 750MG + NS 250 ML IV SCH ×4 (08:35→18:17)
[2020-12-05] MEDS: AMLODIPINE 5 MG TAB PO SCH (08:36)
[2020-12-05] MEDS: OXYBUTYNIN CHLORIDE 5 MG TABLET PO SCH (08:36)
[2020-12-05] MEDS: ENOXAPARIN SODIUM 40 MG/0.4 ML SYRINGE SQ SCH (08:37)
[2020-12-05] MEDS: POLYETHYLENE GLYCOL 3350 17 GM POWD.PACK PO SCH ×2 (08:37→09:00)
[2020-12-05] MEDS: INSULIN HUMULIN R 100 UNIT/ML 3ML SQ SCH ×4 (08:40→20:49)
[2020-12-05 12:00] VITALS: BP 125/66
[2020-12-05 16:00] VITALS: BP 133/63
[2020-12-05] MEDS: PANTOPRAZOLE 40 MG TAB DR PO SCH (16:31)
[2020-12-05 20:00] VITALS: BP 128/72
[2020-12-05] MEDS: ATORVASTATIN 40 MG TABLET PO SCH (20:10)
[2020-12-06] VITALS: BP 124/64
[2020-12-06 04:00] VITALS: BP 140/73
[2020-12-06] MEDS: SOLU-MEDROL 125MG VIAL IVP SCH ×2 (04:09→11:24)
[2020-12-06] MEDS: ZOSYN 3.375GM+NS 50ML 50 ML IV SCH ×2 (04:09→12:10)
[2020-12-06 05:40] LABS: BASOPHILS % (AUTO) 0.2 % (0.0-5.0); HEMATOCRIT 37.6 % (42-54); LYMPHOCYTES % (AUTO) 2.8 % (21.0-51.0); MEAN CORPUSCULAR HGB CONC 33.2 g/dL (32.0-36.0); MEAN CORPUSCULAR VOLUME 90.2 fL (79-99); MONOCYTES % (AUTO) 2.6 % (3.0-13.0); NEUTROPHILS % (AUTO) 92.4 % (40.0-77.0); PLATELET COUNT (AUTO) 133 K/uL (130-400); RED BLOOD CELL COUNT(AUTO) 4.17 MIL/uL (4.50-6.20); RED CELL DISTRIBUTION WIDTH 14.5 % (11.0-15.5); WHITE BLOOD COUNT (AUTO) 17.8 K/uL (4.8-10.8)
[2020-12-06 06:07] LABS: CREATININE 0.6 mg/dL (0.5-1.5); POTASSIUM 3.7 mmol/L (3.5-5.1)
[2020-12-06] MEDS: VANCOMYCIN 750MG + NS 250 ML IV SCH ×2 (07:02)
[2020-12-06] MEDS: ENOXAPARIN SODIUM 40 MG/0.4 ML SYRINGE SQ SCH (07:35)
[2020-12-06] MEDS: OXYBUTYNIN CHLORIDE 5 MG TABLET PO SCH (07:35)
[2020-12-06] MEDS: AMLODIPINE 5 MG TAB PO SCH (07:35)
[2020-12-06] MEDS: POLYETHYLENE GLYCOL 3350 17 GM POWD.PACK PO SCH (07:35)
[2020-12-06] MEDS: INSULIN HUMULIN R 100 UNIT/ML 3ML SQ SCH ×4 (07:36→20:38)
[2020-12-06 08:00] VITALS: BP 147/74
[2020-12-06 12:00] VITALS: BP 120/69
[2020-12-06 16:00] VITALS: BP 138/74
[2020-12-06] MEDS: PANTOPRAZOLE 40 MG TAB DR PO SCH (16:06)
[2020-12-06 20:00] VITALS: BP 127/75
[2020-12-06] MEDS: AMOX/CLAV 875/125MG TAB PO SCH (20:36)
[2020-12-06] MEDS: ATORVASTATIN 40 MG TABLET PO SCH (20:36)
[2020-12-07] VITALS (7 sets, daily range): BP systolic 121–144; BP diastolic 62–77
[2020-12-07 05:04] LABS: HEMATOCRIT 42.1 % (42-54); MEAN CORPUSCULAR HEMOGLOBIN 29.3 pg (27.0-33.0); MEAN CORPUSCULAR HGB CONC 32.1 g/dL (32.0-36.0); MEAN CORPUSCULAR VOLUME 91.5 fL (79-99); RED BLOOD CELL COUNT(AUTO) 4.6 MIL/uL (4.50-6.20); RED CELL DISTRIBUTION WIDTH 14.5 % (11.0-15.5); WHITE BLOOD COUNT (AUTO) 17.7 K/uL (4.8-10.8)
[2020-12-07 05:18] LABS: CREATININE 0.6 mg/dL (0.5-1.5); POTASSIUM 3.1 mmol/L (3.5-5.1)
[2020-12-07] MEDS: INSULIN HUMULIN R 100 UNIT/ML 3ML SQ SCH ×4 (07:02→21:08)
[2020-12-07] MEDS: PREDNISONE 20 MG TABLET PO SCH (07:45)
[2020-12-07] MEDS: ENOXAPARIN SODIUM 40 MG/0.4 ML SYRINGE SQ SCH (07:45)
[2020-12-07] MEDS: OXYBUTYNIN CHLORIDE 5 MG TABLET PO SCH (07:45)
[2020-12-07] MEDS: AMLODIPINE 5 MG TAB PO SCH (07:45)
[2020-12-07] MEDS: POLYETHYLENE GLYCOL 3350 17 GM POWD.PACK PO SCH (07:46)
[2020-12-07] MEDS: AMOX/CLAV 875/125MG TAB PO SCH ×2 (08:08→21:07)
[2020-12-07] MEDS: PANTOPRAZOLE 40 MG TAB DR PO SCH (16:27)
[2020-12-07] MEDS: ATORVASTATIN 40 MG TABLET PO SCH (21:07)
[2020-12-08 05:01] VITALS: BP 135/72
[2020-12-08] MEDS: INSULIN HUMULIN R 100 UNIT/ML 3ML SQ SCH ×4 (07:30→20:37)
[2020-12-08 08:00] VITALS: BP 136/72
[2020-12-08] MEDS: POLYETHYLENE GLYCOL 3350 17 GM POWD.PACK PO SCH (09:00)
[2020-12-08] MEDS: AMOX/CLAV 875/125MG TAB PO SCH ×2 (10:02→20:30)
[2020-12-08] MEDS: OXYBUTYNIN CHLORIDE 5 MG TABLET PO SCH (10:02)
[2020-12-08] MEDS: ENOXAPARIN SODIUM 40 MG/0.4 ML SYRINGE SQ SCH (10:02)
[2020-12-08] MEDS: AMLODIPINE 5 MG TAB PO SCH (10:03)
[2020-12-08] MEDS: PREDNISONE 20 MG TABLET PO SCH (10:03)
[2020-12-08 16:00] VITALS: BP 106/64
[2020-12-08] MEDS: PANTOPRAZOLE 40 MG TAB DR PO SCH (16:21)
[2020-12-08] MEDS: ATORVASTATIN 40 MG TABLET PO SCH (20:30)
[2020-12-08 20:37] VITALS: BP 123/69
[2020-12-09] VITALS (7 sets, daily range): BP systolic 109–164; BP diastolic 53–79
[2020-12-09 04:17] LABS: HEMATOCRIT 40.6 % (42-54); MEAN CORPUSCULAR HEMOGLOBIN 30.1 pg (27.0-33.0); MEAN CORPUSCULAR HGB CONC 33.7 g/dL (32.0-36.0); MEAN CORPUSCULAR VOLUME 89.2 fL (79-99); RED BLOOD CELL COUNT(AUTO) 4.55 MIL/uL (4.50-6.20); RED CELL DISTRIBUTION WIDTH 14.7 % (11.0-15.5); WHITE BLOOD COUNT (AUTO) 13.8 K/uL (4.8-10.8)
[2020-12-09 04:34] LABS: CREATININE 0.7 mg/dL (0.5-1.5); POTASSIUM 3.3 mmol/L (3.5-5.1)
[2020-12-09 04:44] LABS: ABG BASE EXCESS 6.6 mmol/L (-2.0-3.0); ABG HCO3 30.9 mmol/L (21.0-28.0); ABG OXYGEN SATURATION 93.5 % (95.0-99.0); ABG PCO2 43 mmHg (35-48)
[2020-12-09] MEDS: INSULIN HUMULIN R 100 UNIT/ML 3ML SQ SCH ×4 (06:13→20:14)
[2020-12-09] MEDS ORDERED: POTASSIUM CHLORIDE 10% ELIXIR 20 MEQ/15 ML UDCUP PO PRN (06:15)
[2020-12-09] MEDS ORDERED: LIDOCAINE HCL-MPF 1% 2ML VIAL IV PRN (06:15)
[2020-12-09] MEDS ORDERED: POTASSIUM CHLORIDE 20MEQ/100ML 100 ML IV PRN (06:15)
[2020-12-09] MEDS ORDERED: KCL 20 MEQ ERTAB PO PRN (06:15)
[2020-12-09] MEDS ORDERED: POTASSIUM CHLORIDE 10% ELIXIR 20 MEQ/15 ML UDCUP ONE (06:17)
[2020-12-09] MEDS: PREDNISONE 20 MG TABLET PO SCH (10:32)
[2020-12-09] MEDS: OXYBUTYNIN CHLORIDE 5 MG TABLET PO SCH (10:32)
[2020-12-09] MEDS: AMOX/CLAV 875/125MG TAB PO SCH ×2 (10:32→20:16)
[2020-12-09] MEDS: ENOXAPARIN SODIUM 40 MG/0.4 ML SYRINGE SQ SCH (10:33)
[2020-12-09] MEDS: POLYETHYLENE GLYCOL 3350 17 GM POWD.PACK PO SCH (10:33)
[2020-12-09] MEDS: AMLODIPINE 5 MG TAB PO SCH (10:40)
[2020-12-09] MEDS ORDERED: KCL 20 MEQ ERTAB PO SCH (13:30)
[2020-12-09 13:34] LABS: ABG BASE EXCESS 2.6 mmol/L (-2.0-3.0); ABG HCO3 26.1 mmol/L (21.0-28.0); ABG OXYGEN SATURATION 91.2 % (95.0-99.0); ABG PCO2 37 mmHg (35-48)
[2020-12-09] MEDS: PANTOPRAZOLE 40 MG TAB DR PO SCH (17:13)
[2020-12-09] MEDS: ATORVASTATIN 40 MG TABLET PO SCH (20:16)
[2020-12-10 00:01] VITALS: BP 108/61
[2020-12-10 04:15] LABS: ABG BASE EXCESS 4.7 mmol/L (-2.0-3.0); ABG HCO3 28.5 mmol/L (21.0-28.0); ABG OXYGEN SATURATION 96.8 % (95.0-99.0); ABG PCO2 39 mmHg (35-48)
[2020-12-10 04:34] LABS: HEMATOCRIT 39.7 % (42-54); MEAN CORPUSCULAR HEMOGLOBIN 30.1 pg (27.0-33.0); MEAN CORPUSCULAR VOLUME 91.3 fL (79-99); RED BLOOD CELL COUNT(AUTO) 4.35 MIL/uL (4.50-6.20); RED CELL DISTRIBUTION WIDTH 14.9 % (11.0-15.5); WHITE BLOOD COUNT (AUTO) 13.9 K/uL (4.8-10.8)
[2020-12-10 04:42] VITALS: BP 140/74
[2020-12-10 04:46] LABS: CREATININE 0.6 mg/dL (0.5-1.5); POTASSIUM 3.8 mmol/L (3.5-5.1)
[2020-12-10] MEDS: INSULIN HUMULIN R 100 UNIT/ML 3ML SQ SCH ×3 (05:49→16:30)
[2020-12-10 08:00] VITALS: BP 122/73
[2020-12-10] MEDS: AMLODIPINE 5 MG TAB PO SCH (08:29)
[2020-12-10] MEDS: AMOX/CLAV 875/125MG TAB PO SCH (08:29)
[2020-12-10] MEDS: OXYBUTYNIN CHLORIDE 5 MG TABLET PO SCH (08:30)
[2020-12-10] MEDS: POLYETHYLENE GLYCOL 3350 17 GM POWD.PACK PO SCH (08:30)
[2020-12-10] MEDS: PREDNISONE 20 MG TABLET PO SCH (08:30)
[2020-12-10] MEDS: ENOXAPARIN SODIUM 40 MG/0.4 ML SYRINGE SQ SCH (08:30)
[2020-12-10 12:00] VITALS: BP 147/90
[2020-12-10] MEDS: PANTOPRAZOLE 40 MG TAB DR PO SCH (16:23)
[2020-12-10 16:57] VITALS: BP 133/65
== END 2020-12-10 19:16 | DRG 177 ==
LOC: EDH 09:43 → EDHIP 11:26 → 2AH 15:30 → 4AH 11-28 15:18
PROVIDERS: ADMIT Internal Medicine Critical Care Medicine; ATTEND Internal Medicine Critical Care Medicine
PROC: XW033E5 Introduction of Remdesivir Anti-infective into Peripheral Vein, Percutaneous Approach, New Technology Group 5 (ICD-10-PCS; principal; 2020-11-20)
PROC: 5A0935A Assistance with Respiratory Ventilation, Less than 24 Consecutive Hours, High Flow/Velocity Cannula (ICD-10-PCS; 2020-11-20)
PROC: 5A0935A Assistance with Respiratory Ventilation, Less than 24 Consecutive Hours, High Flow/Velocity Cannula (ICD-10-PCS; 2020-11-21)
PROC: 5A0935A Assistance with Respiratory Ventilation, Less than 24 Consecutive Hours, High Flow/Velocity Cannula (ICD-10-PCS; 2020-11-23)
PROC: 5A0935A Assistance with Respiratory Ventilation, Less than 24 Consecutive Hours, High Flow/Velocity Cannula (ICD-10-PCS; 2020-11-24)
PROC: 5A0935A Assistance with Respiratory Ventilation, Less than 24 Consecutive Hours, High Flow/Velocity Cannula (ICD-10-PCS; 2020-11-25)
PROC: 5A0935A Assistance with Respiratory Ventilation, Less than 24 Consecutive Hours, High Flow/Velocity Cannula (ICD-10-PCS; 2020-11-26)
PROC: 5A0935A Assistance with Respiratory Ventilation, Less than 24 Consecutive Hours, High Flow/Velocity Cannula (ICD-10-PCS; 2020-11-27)
PROC: 5A0945A Assistance with Respiratory Ventilation, 24-96 Consecutive Hours, High Flow/Velocity Cannula (ICD-10-PCS; 2020-11-28)
PROC: 5A0935A Assistance with Respiratory Ventilation, Less than 24 Consecutive Hours, High Flow/Velocity Cannula (ICD-10-PCS; 2020-11-30)
DX: U07.1 COVID-19 (principal); J96.01 Acute respiratory failure with hypoxia; J12.82 Pneumonia due to coronavirus disease 2019; G92 Toxic encephalopathy; K21.9 Gastro-esophageal reflux disease without esophagitis; E11.9 Type 2 diabetes mellitus without complications; Y95 Nosocomial condition; R49.0 Dysphonia; I10 Essential (primary) hypertension; E78.5 Hyperlipidemia, unspecified; J84.10 Pulmonary fibrosis, unspecified; N40.0 Benign prostatic hyperplasia without lower urinary tract symptoms; Z86.79 Personal history of other diseases of the circulatory system; Z79.899 Other long term (current) drug therapy
CPT/HCPCS: 36415; 36600; 70492; 71045; 71275; 80048; 80053; 80076; 80202; 81001; 82435; 82550; 82565; 82728; 82803; 82947; 82948; 83540; 83550; 83605; 83615; 83735; 83874; 83880; 84100; 84132; 84145; 84295; 84484; 85018; 85025; 85027; 85378; 85610; 85651; 85730; 86140; 86900; 86901; 87040; 87088; 87426; 87804; 87880; 93005; 97039; G0378; J0692; J0696; J1650; J1815; J2543; J2930; J3370; J3490; J7040; J7050; J7120; Q0167; Q9967; U0003

== ENCOUNTER 2023-06-11 21:31 | Emergency (ER) | payer OTHER ==
[~2023-06-11] VITALS: Ht 175.3 cm; Wt 74.5 kg
[~2023-06-11 21:31] MED LIST: ALBU6.7H14 IH; AMLO-257 PO; ATOR40TA69 PO; LISI20TA24 PO; OXYB10TA4 PO
[2023-06-11 23:38] LABS: BASOPHILS # (AUTO) 0.03 K/uL (0.00-0.20); BASOPHILS % (AUTO) 0.2 % (0.0-5.0); EOSINOPHILS # (AUTO) 0.02 K/uL (0.00-0.70); EOSINOPHILS % (AUTO) 0.2 % (0.0-8.0); IMMATURE GRANULOCYTE ABSOLUTE 0.04 K/uL (0-1); LYMPHOCYTES # (AUTO) 1.8 K/uL (1.0-4.8); LYMPHOCYTES % (AUTO) 14.7 % (21.0-51.0); MEAN CORPUSCULAR HEMOGLOBIN 31.1 pg (27.0-33.0); MEAN CORPUSCULAR HGB CONC 33.6 g/dL (32.0-36.0); MEAN CORPUSCULAR VOLUME 92.6 fL (79-99); MONOCYTES # (AUTO) 1.1 K/uL (0.1-1.0); MONOCYTES % (AUTO) 8.7 % (3.0-13.0); NEUTROPHILS # (AUTO) 9.1 K/uL (1.8-7.7); NEUTROPHILS % (AUTO) 75.9 % (40.0-77.0); PLATELET COUNT (AUTO) 169 K/uL (130-400); RED BLOOD CELL COUNT(AUTO) 4.21 MIL/uL (4.50-6.20); RED CELL DISTRIBUTION WIDTH 12.8 % (11.0-15.5)
[2023-06-11 23:47] LABS: CREATININE 1.1 mg/dL (0.5-1.5); POTASSIUM 3.5 mmol/L (3.5-5.1)
[2023-06-11 23:52] LABS: BILIRUBIN,TOTAL 1.2 mg/dL (0.2-1.0); TOTAL PROTEIN, SERUM 7.2 g/dL (6.0-8.3)
[2023-06-11 23:53] LABS: ADD UA MICROSCOPIC YES; APPEARANCE,URINE CLEAR (CLEAR); BILIRUBIN,URINE NEGATIVE (NEGATIVE); COLOR,URINE LIGHT-YELLOW (YELLOW); GLUCOSE, URINE (UA) NEGATIVE (NEGATIVE); KETONES,URINE NEGATIVE (NEGATIVE); LEUKOCYTE ESTERASE ,URINE 75 Leu/uL (NEGATIVE); NITRATE,URINE NEGATIVE (NEGATIVE); OCCULT BLOOD,URINE SMALL (NEGATIVE); PH,URINE 5.5 (5.0-8.0); PROTEIN,URINE 10 mg/dL (NEGATIVE); UROBILINOGEN,URINE 0.2 mg/dL (0.2-1.0)
[2023-06-11 23:57] LABS: MUCUS,URINE RARE LPF (None Seen); SQUAMOUS EPITHELIAL CELL,UR RARE /HPF (0-2)
[2023-06-11 23:58] LABS: SARS-CoV-2, RNA, NAAT POSITIVE SARS CoV-2 (NEGATIVE)
[2023-06-12 00:06] LABS: INFLUENZA TYPE A Negative For Type A (NEGATIVE); INFLUENZA TYPE B Negative For Type B (NEGATIVE)
[2023-06-12 00:13] LABS: B-TYPE NATRIURETIC PEPTIDE 101 pg/mL (0-100)
[2023-06-12] MEDS ORDERED: ONDA-104 PO (00:34)
[2023-06-12] MEDS ORDERED: FAMO-136 PO (00:34)
[2023-06-12] MEDS ORDERED: IBUP-1493 PO (00:34)
[2023-06-12 00:44] VITALS: BP 153/76; PULSE 70; RESP 16; O2SAT 96
== END 2023-06-12 00:50 | disposition home or self-care (01) ==
LOC: EDH 21:31
DX: U07.1 COVID-19 (principal); Z79.899 Other long term (current) drug therapy
CPT/HCPCS: 99283; 71045; 87635; 84484; 80053; 83880; 85025; 87088; 87804 ×2; 81001; 36415; 93005; C9803